=== PATIENT | female | born 1990 | race Caucasian/White ===

== ENCOUNTER 2022-02-26 13:01 | Emergency (ER) | payer OTHER, SELFPAY ==
[2022-02-26 13:14] VITALS: BP 99/68; PULSE 115; RESP 18; TEMP 36.3; O2SAT 98
--- NOTE | 2022-02-26 14:05 | ED.FEMALEGU ---
HPI - Female Genitourinary General Chief complaint: Urogenital-Female Stated complaint: UTI Time Seen by Provider: 02/26/22 13:59 Source: patient Mode of arrival: ambulatory Limitations: no limitations History of Present Illness HPI Narrative: Patient presents today with a 4-day history of dysuria and urinary frequency. Denies any additional symptoms to include abdominal pain, back pain, nausea or vomiting, fever, hematuria. She is been taking Azo with some mild relief. No recent antibiotic use. Related Data Allergies Allergy/AdvReac Type Severity Reaction Status Date / Time acetaminophen [From Vicodin] Allergy Other Verified 02/26/22 13:33 hydrocodone [From Vicodin] Allergy Other Verified 02/26/22 13:33 ketorolac [From Toradol] Allergy Other Verified 02/26/22 13:33 Review of Systems Review of Systems: CONSTITUTIONAL: Denies body aches, fever, chills, or sweats. EYES: Denies visual changes, redness, or discharge. ENT: Denies rhinorrhea, congestion, sore throat, or otalgia. CARDIOVASCULAR: Denies chest pain, palpitations, or edema. RESPIRATORY: Denies cough or dyspnea. GASTROINTESTINAL: Denies abdominal pain, nausea, vomiting, or diarrhea. GENITOURINARY: + Dysuria, frequency SKIN: Denies rash, itching, or wounds. MUSCULOSKELETAL: Denies back pain, joint pain, or myalgia. NEUROLOGIC: Denies headache, numbness, tingling, or weakness. PSYCH: Denies depression or anxiety. [facility] Past Medical History Medical History (Updated 02/26/22 @ 14:10 by Opal Holden, [facility], ) Ezequiel-Danlos syndrome Fibromyalgia Comments At time of signature, I have reviewed and agree with nursing past medical, surgical, social and family history unless otherwise noted. Please see nursing chart for further information. There is no relevant family history pertinent to the presenting complaint Exam Narrative: GENERAL: Well-appearing, well-nourished, and in no acute distress. HEAD: Normocephalic, atraumatic. EYES: EOMI. No redness or drainage. Conjunctivae normal. ENT: Mucous membranes pink and moist. NECK: Normal AROM. CHEST: No respiratory distress. Clear to auscultation. HEART: Regular rate and rhythm. No murmur appreciated. Normal peripheral pulses. ABDOMEN: Soft, nontender, nondistended, normal active bowel sounds. MUSCULOSKELETAL: No bony tenderness. EXTREMITIES: Normal range of motion. No edema. SKIN: Warm, dry, no rash. Capillary refill normal. Normal skin turgor. NEURO: No focal deficits. Alert and oriented x3. Gait steady. PSYCH: Normal affect. No signs of depression or anxiety. Course Course Level of Care: Express Care Visit Vital Signs Vital signs: Vital Signs Temperature 97.4 F L 02/26/22 13:14 Pulse Rate 115 H 02/26/22 13:14 Respiratory Rate 18 02/26/22 13:14 Blood Pressure 99/68 L 02/26/22 13:14 Pulse Oximetry 98 02/26/22 13:14 Oxygen Delivery Room Air 02/26/22 13:14 Temperature 97.4 F L 02/26/22 13:14 Pulse Rate 115 H 02/26/22 13:14 Respiratory Rate 18 02/26/22 13:14 Blood Pressure 99/68 L 02/26/22 13:14 Pulse Oximetry 98 02/26/22 13:14 Oxygen Delivery Room Air 02/26/22 13:14 Reviewed MDM - Female Genitourinary Differential Diagnosis Differential diagnosis: Likely urinary tract infection, vaginitis, cystitis and other (Pyelonephritis) Lab Data Attestation: I reviewed the patient's lab results. Labs: Urine Glucose Negative Reference Range: Negative Urine Bilirubin Negative Reference Range: Negative Urine Ketone Negative Reference Range: Negative Urine Specific [place] 1.025 Reference Range:1.001-1.035 Urine Blood Trace
== END 2022-02-26 14:17 | disposition home or self-care (01) ==
PROVIDERS: Emergency Provider Nurse Practitioner
DX: N30.01 Acute cystitis with hematuria (principal); Q79.60 Ehlers-Danlos syndrome, unspecified; M79.7 Fibromyalgia
CPT/HCPCS: 81003; 87077; 87086; 87088; 99203; G0463